=== PATIENT | male | born 1980 | race Caucasian/White ===

== ENCOUNTER 2024-04-26 07:25 | Day surgery (SDC) | payer BC ==
[~2024-04-26] VITALS: Ht 175.3 cm; Wt 77.5 kg
[~2024-04-26 07:25] MED LIST: LR 1,000 ML IV SCH; Ondansetron 4 MG/2 ML VIAL IV PRN
[2024-04-26] MEDS ORDERED: Lidocaine PF 2% (20 MG/ML) 5 ML VIAL ONE (07:26)
[2024-04-26 08:02] VITALS: BP 143/96; PULSE 84; TEMP 97.1
[2024-04-26 09:05] VITALS: BP 126/98; PULSE 84; TEMP 97
[2024-04-26 09:20] VITALS: BP 139/94; PULSE 74
--- NOTE | 2024-04-26 09:35 | NUR ---
0905 RETURNS TO ROOM 4 PER CART. AWAKE, ALERT. RESP UNLABORED. AMBULATES TO RECLINER WITH STANDBY ASSIST. DENIES NAUSEA OR ABD PAIN. VITAL SIGNS OBTAINED. CALL LIGHT AT SIDE 0920 TOLERATES PO JUICE WITHOUT NAUSEA. DISCHARGE INSTRUCTIONS REVIEWED. PATIENT VERBALIZES UNDERSTANDING. COPY PROVIDED IN DISCHARGE FOLDER [id number] DRESSES SELF
== END 2024-04-26 09:38 | disposition home or self-care (01) ==
LOC: SDCO 07:25
DX: Z12.11 Encounter for screening for malignant neoplasm of colon (principal)
CPT/HCPCS: J2704; J7120